=== PATIENT | male | born 1990 | race Hispanic/Latino ===

== ENCOUNTER 2019-03-15 07:55 | Emergency (ER) | payer OTHER ==
[~2019-03-15] VITALS: Ht 162.6 cm; Wt 88.5 kg
[2019-03-15] MEDS ORDERED: PENICILLIN G BENZATHINE LA 1.2 MU TBX IM STA (08:24)
--- NOTE | 2019-03-15 08:24 | NUR ---
CLIENT OPTED FOR INJECTION, STATES HE IS NOT COMPLIANT WITH ORAL MEDS.
[2019-03-15] MEDS ORDERED: PENICILLIN G BENZATHINE LA 1.2 MU TBX ONE (08:32)
== END 2019-03-15 08:50 | disposition home or self-care (01) ==
LOC: ER 07:55
DX: J02.0 Streptococcal pharyngitis (principal)
CPT/HCPCS: 99282; J0561

== ENCOUNTER 2024-01-08 15:02 | Emergency (ER) | payer SELFPAY ==
[~2024-01-08] VITALS: Ht 160 cm; Wt 93.0 kg
[2024-01-08 15:39] VITALS: PULSE 80; RESP 16; TEMP 98.3; O2SAT 96
[2024-01-08 16:04] LABS: BASOPHILS # (AUTO) 0.1 (0.0-0.1); BASOPHILS % 0.3 % (0.0-1.0); EOSINOPHILS # (AUTO) 0.1 (0.0-0.4); EOSINOPHILS % 0.8 % (0.0-6.0); HEMATOCRIT 45.1 % (38.2-49.6); HEMOGLOBIN 14.9 g/dL (14.0-18.0); LYMPHOCYTES # (AUTO) 1.7 (1.0-3.2); LYMPHOCYTES % 11.9 % (18.0-39.1); MEAN CORPUSCULAR HEMOGLOBIN 34.1 pg (28-32); MEAN CORPUSCULAR VOLUME 103.2 fL (81-99); MONOCYTES # (AUTO) 0.9 (0.2-0.8); MONOCYTES % 6.1 % (4.4-11.3); NEUTROPHILS # (AUTO) 11.7 (2.1-6.9); NEUTROPHILS % 80.6 % (38.7-80.0); PLATELET COUNT 254 x10e3/uL (140-360); RED BLOOD COUNT 4.37 x10e6/uL (4.3-5.7); WHITE BLOOD COUNT 14.57 x10e3/uL (4.8-10.8)
[2024-01-08 16:09] LABS: INR 1.02; PARTIAL THROMBOPLASTIN TIME 28.1 seconds (23.8-35.5)
[2024-01-08] MEDS: ONDANSETRON HCL INJ 2MG/ML 2ML 2 MG/ML VIAL IV STA (16:11)
[2024-01-08] MEDS: SODIUM CHLORIDE 0.9% 1000ML 1,000 ML IV STA (16:12)
[2024-01-08 16:21] LABS: ALANINE AMINOTRANSFERASE 31 IU/L (0-55); ALBUMIN 4.4 g/dL (3.5-5.0); ALBUMIN/GLOBULIN RATIO 1.4 (0.8-2.0); ALKALINE PHOSPHATASE 72 IU/L (40-150); ANION GAP 14.9 mmol/L (8-16); BILIRUBIN,TOTAL 0.9 mg/dL (0.2-1.2); BLOOD UREA NITROGEN 9 mg/dL (7-26); BUN/CREATININE RATIO 11 (6-25); CARBON DIOXIDE 22 mmol/L (22-29); CHLORIDE 108 mmol/L (98-107); CREATINE KINASE 63 IU/L (30-200); CREATININE, SERUM 0.79 mg/dL (0.72-1.25); EST GLOMERULAR FILTRATION RATE 120 ML/MIN (>=60); GLUCOSE 116 mg/dL (74-118); LIPASE 14 U/L (8-78); MAGNESIUM 2.1 MG/DL (1.3-2.1); POTASSIUM 3.9 mmol/L (3.5-5.1); SODIUM 141 mmol/L (136-145); TOTAL PROTEIN 7.6 g/dL (6.5-8.1)
[2024-01-08] MEDS ORDERED: IOPAMIDOL 370 MG/ML 100 ML INFUS..BTL INJ ONE (16:26)
[2024-01-08 16:28] LABS: TROPONIN I < 0.001 ng/mL (0-0.300)
[2024-01-08 17:03] LABS: COLOR,URINE YELLOW (YELLOW)
[2024-01-08 17:04] LABS: BILIRUBIN,URINE SMALL (NEGATIVE); CLARITY,URINE SL CLOUDY (CLEAR); GLUCOSE, URINE NEGATIVE (NEGATIVE); KETONES,URINE TRACE (NEGATIVE); LEUKOCYTE ESTERASE ,URINE NEGATIVE (NEGATIVE); NITRITE,URINE NEGATIVE (NEGATIVE); PH,URINE 6 (5 - 7); PROTEIN,URINE DIPSTICK 1+ (NEGATIVE); URINE UROBILINOGEN 0.2 mg/dL (0.2 - 1)
[2024-01-08 17:09] LABS: BACTERIA,URINE RARE /HPF; EPITHELIAL CELLS,URINE RARE /LPF; MUCUS,URINE MANY (RARE); RBC,URINE 0-5 /HPF (0-5); WBC,URINE (MAN) 0-5 /HPF (0-5)
[2024-01-08 17:10] LABS: AMPHETAMINES SCREEN,URINE NEGATIVE (NEGATIVE); BENZODIAZEPINES SCREEN,URINE POSITIVE (NEGATIVE); CANNABINOIDS SCREEN,URINE POSITIVE (NEGATIVE); COCAINE SCREEN,URINE NEGATIVE (NEGATIVE); METHADONE SCREEN, URINE NEGATIVE (NEGATIVE); OPIATES SCREEN,URINE NEGATIVE (NEGATIVE); PHENCYCLIDINE SCREEN,URINE NEGATIVE (NEGATIVE)
[2024-01-08] MEDS ORDERED: ONDANSETRON ODT4 MG PO (17:40)
[2024-01-08] MEDS ORDERED: PROMETHAZINE HC25 M1 PO (17:40)
[2024-01-08] MEDS ORDERED: DICYCLOMINE HCL20 MG PO (17:40)
[2024-01-08] MEDS ORDERED: PANTOPRAZOLE SO40 MG PO (17:40)
== END 2024-01-08 18:00 | disposition home or self-care (01) ==
LOC: ER 15:44
DX: R11.2 Nausea with vomiting, unspecified (principal); F12.90 Cannabis use, unspecified, uncomplicated; K80.20 Calculus of gallbladder without cholecystitis without obstruction
CPT/HCPCS: 36415; 71045; 74177; 80053; 80307; 81001; 82550; 83690; 83735; 84484; 85025; 85610; 85730; 99284; J2405; J2470; J7030; Q9967